=== PATIENT | male | born 1960 | race Caucasian/White ===

== ENCOUNTER → 2017-03-31 | Outpatient (CLI) | payer OTHER ==
[~2017-03-31] MED LIST: CLEOCIN HCL300 MG PO; NORCO 325 MG-51 TAB PO
== END ==
LOC: COL.RAD 12:10
DX: M23.321 Other meniscus derangements, posterior horn of medial meniscus, right knee (principal); M16.11 Unilateral primary osteoarthritis, right hip; M25.461 Effusion, right knee; M71.21 Synovial cyst of popliteal space [Baker], right knee; G89.29 Other chronic pain

== ENCOUNTER 2017-04-22 15:40 | Emergency (ER) | payer OTHER ==
[~2017-04-22] VITALS: Ht 175.3 cm; Wt 79.1 kg
[2017-04-22 15:43] VITALS: TEMP 97.4
[2017-04-22] MEDS ORDERED: NITROSTAT0.4 MG/TAB SL (15:54)
[2017-04-22] MEDS ORDERED: ASPIRIN 81M81 MG/TA2 PO (15:56)
[2017-04-22] MEDS ORDERED: NORVASC 10MG10 MG PO (16:07)
[2017-04-22] MEDS ORDERED: IPRATROPIUM BROM3 M1 (16:07)
[2017-04-22] MEDS ORDERED: LIPITOR 40MG TA40 MG PO (16:08)
[2017-04-22] MEDS ORDERED: 00186-0370-20 IH (16:08)
[2017-04-22] MEDS ORDERED: LOPRESSOR100 MG PO (16:09)
[2017-04-22] MEDS ORDERED: PRILOSEC 20MG20 MG PO (16:10)
[2017-04-22 16:13] LABS: BASO # 0.1 (0.0-0.2); BASO % 1.2 % (0.0-2.0); EOS # 0.3 (0.0-0.7); EOS % 3.5 % (0-4.0); GRAN # 5.1 (1.4-6.5); GRAN % 59.5 % (42.2-75.2); HEMATOCRIT 40.9 % (42.0-52.0); HEMOGLOBIN 14.4 g/dl (13.5-18.0); LYMPH # 2.4 (1.2-3.4); MEAN CELL VOLUME 95 fl (80.0-100.0); MEAN CORPUSCULAR HEMOGLOBIN 33 pg (27.0-31.0); MEAN CORPUSCULAR HGB CONC 35 g/dl (33.0-37.0); MEAN PLATELET VOLUME 9.4 fl (7.4-10.4); MONO # 0.6 (0.1-0.6); MONO % 7.3 % (1.7-9.3); PLATELET COUNT 159 K/mm3 (130-400); RED BLOOD COUNT 4.33 M/mm3 (4.20-5.60); REDCELL DISTRIBUTION WIDTH-CV 12.9 % (11.5-14.5)
[2017-04-22 16:24] LABS: ALANINE AMINOTRANSFERASE 28 U/L (21-72); ALBUMIN 4.1 gm/dL (3.5-5.0); ALKALINE PHOSPHATASE 81 U/L (50-136); ANION GAP 9 mmol/L (7-16); AST,SGOT 22 U/L (15-37); BILIRUBIN,TOTAL 0.5 mg/dL (0.0-1.0); BLOOD UREA NITROGEN 19 mg/dL (9-20); CALCIUM 8.5 mg/dL (8.4-10.2); CARBON DIOXIDE 28 mmol/L (22-30); CHLORIDE 105 mmol/L (98-107); CREATININE, serum 1.16 mg/dL (0.66-1.25); GLUCOSE 102 mg/dL (74-106); LIPASE 72 U/L (23-300); SODIUM 141 mmol/L (137-145)
[2017-04-22 16:36] LABS: TROPONIN-I < 0.012 ng/mL (0.000-0.034)
[2017-04-22 16:40] LABS: POTASSIUM 3.7 mmol/L (3.4-5.0)
[2017-04-22 19:10] VITALS: BP 139/76; PULSE 67
== END 2017-04-22 19:12 | disposition short-term general hospital (02) ==
LOC: COL.ER 15:40
PROVIDERS: Emergency Medicine
DX: I24.9 Acute ischemic heart disease, unspecified (principal); J44.9 Chronic obstructive pulmonary disease, unspecified; F17.210 Nicotine dependence, cigarettes, uncomplicated; Z95.5 Presence of coronary angioplasty implant and graft; Z90.89 Acquired absence of other organs; Z79.82 Long term (current) use of aspirin
CPT/HCPCS: J7030

== ENCOUNTER 2017-05-26 14:15 | Outpatient (RCR) | payer OTHER ==
[~2017-05-26 14:15] MED LIST changes: +00186-0370-20 IH; +ASPIRIN 81M81 MG/TA2 PO; +IPRATROPIUM BROM3 M1; +LIPITOR 40MG TA40 MG PO; +LOPRESSOR100 MG PO; +NITROSTAT0.4 MG/TAB SL; +NORVASC 10MG10 MG PO; +PRILOSEC 20MG20 MG PO
== END 2017-06-04 13:39 | disposition home or self-care (01) ==
LOC: COL.CR 14:15
DX: Z48.812 Encounter for surgical aftercare following surgery on the circulatory system (principal); Z95.5 Presence of coronary angioplasty implant and graft; I25.110 Atherosclerotic heart disease of native coronary artery with unstable angina pectoris

== ENCOUNTER 2018-01-09 09:02 | Day surgery (SDC) | payer OTHER ==
[~2018-01-09] VITALS: Ht 172.7 cm; Wt 80.2 kg
[~2018-01-09 09:02] MED LIST changes: -IPRATROPIUM BROM3 M1; +IPRATROPIUM BROM3 M1 IH
[2018-01-09] MEDS ORDERED: TOPROL XL200 MG PO (09:36)
[2018-01-09 09:37] VITALS: BP 143/85; PULSE 109; TEMP 98.2
[2018-01-09] MEDS ORDERED: PLAVIX 75MG TAB75 MG PO (09:37)
[2018-01-09 10:50] VITALS: BP 129/79; PULSE 62; TEMP 97.6
[2018-01-09 11:05] VITALS: BP 137/79; PULSE 58
[2018-01-09 11:20] VITALS: BP 140/77; PULSE 54
== END 2018-01-09 11:45 | disposition home or self-care (01) ==
LOC: SDCO 09:02
DX: Z12.11 Encounter for screening for malignant neoplasm of colon (principal); D12.5 Benign neoplasm of sigmoid colon; K63.5 Polyp of colon; J44.9 Chronic obstructive pulmonary disease, unspecified; I25.10 Atherosclerotic heart disease of native coronary artery without angina pectoris; I25.2 Old myocardial infarction; I10 Essential (primary) hypertension; G47.33 Obstructive sleep apnea (adult) (pediatric); K21.9 Gastro-esophageal reflux disease without esophagitis; Z86.010 Personal history of colon polyps; Z88.0 Allergy status to penicillin
CPT/HCPCS: J2704; J7120

== ENCOUNTER 2018-06-25 12:16 | Inpatient (IN) | payer OTHER ==
[~2018-06-25] VITALS: Ht 175.3 cm; Wt 82.7 kg
[~2018-06-25 12:16] MED LIST changes: +LIPITOR 10MG10 MG PO; -LIPITOR 40MG TA40 MG PO; -NORVASC 10MG10 MG PO; +NORVASC2.5 MG PO; +PLAVIX 75MG TAB75 MG PO; +TOPROL XL200 MG PO
[2018-09-09] VITALS (12 sets, daily range): BP systolic 112–129; BP diastolic 59–76; PULSE 42–71; TEMP 97.5–98.5
[2018-09-09] MEDS ORDERED: TESSALON P100 MG/CAP PO (02:58)
[2018-09-09] MEDS ORDERED: ALBUTEROL0.83 MG/ML IH (02:58)
[2018-09-09] MEDS ORDERED: ENTOCORT EC3 MG PO (02:59)
[2018-09-09] MEDS ORDERED: ZYRTEC 10MG10 MG PO (03:00)
[2018-09-09] MEDS ORDERED: FLONASEALLERGY NS (03:01)
[2018-09-09] MEDS ORDERED: LOPRESSOR 225 MG/TAB PO (03:03)
[2018-09-09] MEDS ORDERED: NITRO-DUR0.4 MG/PAT TD (03:03)
[2018-09-09] MEDS ORDERED: KOVANAZE 6-0.11 EACH NS (03:04)
[2018-09-09] MEDS ORDERED: FLOMAX 0.40.4 MG/CAP PO (03:05)
[2018-09-09] MEDS ORDERED: TYLENOL W/COD1 UDTAB PO (03:06)
[2018-09-09] MEDS ORDERED: AZO URINARY PAI95 MG PO (03:07)
[2018-09-09] MEDS ORDERED: 00186-0370-20 IH (06:37)
[2018-09-09] MEDS ORDERED: NITROSTAT0.4 MG/TAB SL (06:39)
[2018-09-09] MEDS ORDERED: COMBIRESP (06:43)
--- NOTE | 2018-09-09 10:20 | NUR ---
PATIENT BACK IN ROOM 329 POST OP. A&O. VSS. DENIES PAIN IN RLE. PATIENT IS UNABLE TO MOVE BLE AT THIS TIME. RTK DRESSING IS CD&I WITH BULKY POST OP ACEWRAP. TEDS TO LLE. SCD'S TO BLE. POSITIVE PEDAL PULSES TO BLE. VENTURA TO DEPENDENT DRAINAGE WITH SCANT AMOUNTS OF YELLOW URINE NOTED. IV FLUIDS INFUSING VIA PUMP. HEAD TO TOE ASSESSMENT WNL. ORIENTED TO ROOM. FAMILY NOW AT BEDSIDE. CALL LIGHT IN REACH.
--- NOTE | 2018-09-09 14:30 | NUR ---
RT AT BEDSIDE TO DO TX
--- NOTE | 2018-09-09 15:00 | NUR ---
SW met with patient to discuss discharge planning. Patient lives independently at home. Patient receives primary care and medications via mail from the [facility] in [place]. Patient does not normally use DME but will use a walker after he is discharged. Patient has already obtained a walker. Patient is independent with ADLs and does not use any home health services. Patient reports he plans to get outpatient PT at [facility]. Patient does not have a DPOA-HC and is not interested in completing one at this time. SUKUMAR does not anticipate any discharge needs.
--- NOTE | 2018-09-09 20:00 | NUR ---
Report received. Assumed care for overnight caregiver. Assessment complete. VS have been stable. Plan of care discussed for this shift to include pain medications, antibiotics, IV fluids and diet. Verbalizes understanding. R FA with 20g IV-D 5 1/2NS@125. Tolerating PO. Dressing to right lower extremity C/D/I-bulky white gauze covered with miranda. Cryocuff in place-fresh ice water supplied. Spouse at bedside. Denies questions or concerns. Will monitor.
--- NOTE | 2018-09-09 23:30 | NUR ---
C/O pain to right lower extremity described as throbbing constant pain. Roxicodone given per dr order. WIll monitor.
[2018-09-10 03:47] VITALS: BP 103/50; PULSE 66; TEMP 97.9
--- NOTE | 2018-09-10 06:00 | NUR ---
Has rested off an on this shift with pain controlled with PO medications and Toradol. Dykes cath draining orange urine. Dressing remains C/D/I with extremity elevated on pillow. Cryocuff with fresh ice. Will monitor.
--- NOTE | 2018-09-10 06:42 | NUR ---
Discussed home medications with Dr. Blackmon due to Tramadol allergy. WIll order something different for DC meds.
--- NOTE | 2018-09-10 07:03 | NUR ---
REPORT FROM ALBERTINA CHACON.
[2018-09-10 08:24] LABS: HEMOGLOBIN 11.5 g/dl (13.5-18.0)
[2018-09-10 08:32] LABS: HEMATOCRIT 35.1 % (42.0-52.0)
[2018-09-10 08:42] VITALS: BP 132/61; PULSE 66; TEMP 97.6
--- NOTE | 2018-09-10 09:47 | NUR ---
PT UP TO RECLINER WITH THERAPY. UP TO BR EARLIER IN SHIFT AND THEN RETURNED TO BED. DRESSING TO RIGHT LEG CDI WITH BULKY OCCLUSIVE DRESSING OVER INCISION. DR PALOMARES ROUNDED THIS AM. CODY MARION LIVESTOCK YARD SUPERVISOR IN SO SEE PTS THIS AM ALSO. SEE COMPUTER FOR NEW ORDERS.
--- NOTE | 2018-09-10 10:51 | NUR ---
VENTURA CATHETER REMOVED PT TOLERATED WELL.
[2018-09-10 11:12] VITALS: BP 116/64; PULSE 62; TEMP 97.9
[2018-09-10 16:23] VITALS: BP 125/69; PULSE 76; TEMP 97.9
--- NOTE | 2018-09-10 18:44 | NUR ---
report to Santy CHACON.
[2018-09-10 19:37] VITALS: BP 127/61; PULSE 76; TEMP 98.1
--- NOTE | 2018-09-10 21:00 | NUR ---
Pt. laying in bed at this time. Pt. is A&OX3, assessment complete. Pt. reported he ambulated from the chair to the bathroom and then to bed. Pt. refused walking farther. Dressing to rt. knee CDI. Pt. reports pain at a 7 on pain scale, will give pain meds with evening meds. Pt. denies further needs, call light within reach.
[2018-09-11 00:04] VITALS: BP 136/71; PULSE 82; TEMP 99.3
[2018-09-11 04:49] VITALS: BP 124/68; PULSE 75; TEMP 99.1
[2018-09-11] MEDS ORDERED: ASPI325T6 PO (06:39)
[2018-09-11] MEDS ORDERED: NORCO 325 MG-7.1 TAB PO (06:40)
[2018-09-11] MEDS ORDERED: ROXICODONE 55 MG/TAB PO (06:40)
--- NOTE | 2018-09-11 06:40 | NUR ---
awake resting in bed, bedside shift report received from [facility]
--- NOTE | 2018-09-11 07:50 | NUR ---
up to bathroom independently and moves with steady gait, then back to bed, full assessment completed, see interventions for further info, xeroform gauze removed from right knee incision, cleaned with betadine swabs and then covered with aquacel dressing, denies needs at this time, will order breakfast soon
[2018-09-11 08:04] VITALS: BP 131/69; PULSE 71; TEMP 97.6
--- NOTE | 2018-09-11 09:00 | NUR ---
occupational therapy in to work with patietn and assisted him with taking a shower
--- NOTE | 2018-09-11 10:05 | NUR ---
ambulating in [place] with physical therapy and then to room for exercises
--- NOTE | 2018-09-11 11:00 | NUR ---
resting in bed, denies needs
[2018-09-11 11:56] VITALS: BP 129/58; PULSE 71; TEMP 97.5
--- NOTE | 2018-09-11 12:08 | NUR ---
appears to be sleeping, in bed with eyes closed, resp quiet and easy
--- NOTE | 2018-09-11 12:54 | NUR ---
physical therapy was in and worked with patient, now he is up and getting dressed for discharge
--- NOTE | 2018-09-11 14:00 | NUR ---
discharge instructions given to patient and his sister, verbalizes understanding
--- NOTE | 2018-09-11 14:10 | NUR ---
discharged per WC
== END 2018-09-11 14:10 | disposition home or self-care (01) | DRG 470 ==
LOC: JCC 09-09 05:21
PROVIDERS: ADMIT Orthopaedic Surgery
PROC: 0SRC0J9 Replacement of Right Knee Joint with Synthetic Substitute, Cemented, Open Approach (ICD-10-PCS; principal; 2018-09-09 07:30)
DX: M17.11 Unilateral primary osteoarthritis, right knee (principal); J44.9 Chronic obstructive pulmonary disease, unspecified
CPT/HCPCS: A4314; A9284; C1776; J0690; J1885; J2250; J2704; J2795; J3010; J7120

== ENCOUNTER 2019-01-04 12:56 | Emergency (ER) | payer OTHER ==
[~2019-01-04] VITALS: Ht 172.7 cm; Wt 75.9 kg
[~2019-01-04 12:56] MED LIST changes: +ALBUTEROL0.83 MG/ML IH; +ASPI325T6 PO; +AZO URINARY PAI95 MG PO; +COMBIRESP; +ENTOCORT EC3 MG PO; +FLOMAX 0.40.4 MG/CAP PO; +FLONASEALLERGY NS; +KOVANAZE 6-0.11 EACH NS; +LOPRESSOR 225 MG/TAB PO; +NITRO-DUR0.4 MG/PAT TD; +NORCO 325 MG-7.1 TAB PO; +ROXICODONE 55 MG/TAB PO; +TESSALON P100 MG/CAP PO; +TYLENOL W/COD1 UDTAB PO; +ZYRTEC 10MG10 MG PO
[2019-01-04 12:59] VITALS: TEMP 98.7
[2019-01-04] MEDS ORDERED: LODINE500 MG (13:14)
[2019-01-04] MEDS ORDERED: VITAMIN D 400400 IU PO (13:15)
[2019-01-04] MEDS ORDERED: VIAGRA50 M1 (13:15)
[2019-01-04] MEDS ORDERED: ZITHROMAX 250M250 MG PO (14:38)
[2019-01-04] MEDS ORDERED: PREDNISONE20 MG PO (15:06)
[2019-01-04 15:17] VITALS: BP 140/82; PULSE 96
== END 2019-01-04 15:20 | disposition home or self-care (01) ==
LOC: COL.ER 12:56
DX: J44.1 Chronic obstructive pulmonary disease with (acute) exacerbation (principal); J20.9 Acute bronchitis, unspecified; Z79.82 Long term (current) use of aspirin; Z79.51 Long term (current) use of inhaled steroids
CPT/HCPCS: J7512

== ENCOUNTER 2019-03-16 01:38 | Emergency (ER) | payer OTHER ==
[~2019-03-16] VITALS: Ht 172.7 cm; Wt 80.5 kg
[~2019-03-16 01:38] MED LIST changes: -COMPRESSION HOSE; -K-DUR20 MEQ PO; -LASIX 20MG TABL20 MG PO
[2019-03-16 02:12] VITALS: TEMP 98.7
[2019-03-16 02:51] LABS: BASO # 0.1 (0.0-0.2); BASO % 0.8 % (0.0-2.0); EOS # 0.3 (0.0-0.7); EOS % 3.5 % (0-4.0); GRAN # 5.1 (1.4-6.5); GRAN % 66.5 % (42.2-75.2); HEMATOCRIT 39.9 % (42.0-52.0); HEMOGLOBIN 13.9 g/dl (13.5-18.0); LYMPH # 1.7 (1.2-3.4); LYMPH % 22.2 % (20.0-51.0); MEAN CELL VOLUME 98 fl (80.0-100.0); MEAN CORPUSCULAR HEMOGLOBIN 34 pg (27.0-31.0); MEAN CORPUSCULAR HGB CONC 35 g/dl (33.0-37.0); MONO # 0.5 (0.1-0.6); MONO % 6.7 % (1.7-9.3); PLATELET COUNT 151 K/mm3 (130-400); RED BLOOD COUNT 4.08 M/mm3 (4.20-5.60)
[2019-03-16 02:59] LABS: BILIRUBIN,TOTAL 0.4 mg/dL (0.0-1.0); CALCIUM 8.6 mg/dL (8.4-10.2); CREATININE, serum 0.86 (0.66-1.25); MAGNESIUM 1.4 mg/dL (1.6-2.3); POTASSIUM 3.7 mmol/L (3.4-5.0); TOTAL PROTEIN 7.1 gm/dL (6.4-8.2)
[2019-03-16 03:08] LABS: INR 0.9 (0.8-3.0); PROTHROMBIN TIME 10.8 SECONDS (9.7-12.8)
[2019-03-16 03:11] LABS: PARTIAL THROMBOPLASTIN TIME 30.3 SECONDS (26.0-37.0)
[2019-03-16 03:29] LABS: TSH w REFLEX 2.82 uIU/mL (0.465-4.680)
[2019-03-16 03:36] LABS: COLLECTION METHOD CLEAN CATCH
[2019-03-16 03:41] LABS: MUCOUS Present /lpf; PH 7 (5-8); SQUAMOUS EPITHELIAL 0-2 /hpf; URINE APPEARANCE Clear; URINE BACTERIA None Seen /hpf; URINE BILIRUBIN Negative (NEGATIVE); URINE BLOOD 1+ (NEGATIVE); URINE COLOR Straw; URINE GLUCOSE Negative (NEGATIVE); URINE KETONE Negative (NEGATIVE); URINE LEUKOCYTE ESTERASE Negative (NEGATIVE); URINE NITRATE Negative (NEGATIVE); URINE PROTEIN(semi-quant) Negative (NEGATIVE); URINE RBC 0-2 /hpf; URINE UROBILINOGEN Negative (NEGATIVE)
[2019-03-16] MEDS ORDERED: K-DUR20 MEQ PO (04:15)
[2019-03-16] MEDS ORDERED: LASIX 20MG TABL20 MG PO (04:15)
[2019-03-16] MEDS ORDERED: COMPRESSION HOSE (04:17)
[2019-03-16 04:38] VITALS: BP 152/89; PULSE 76
== END 2019-03-16 04:40 | disposition home or self-care (01) ==
LOC: COL.ER 01:38
PROVIDERS: Emergency Medicine
DX: R60.0 Localized edema (principal); I25.10 Atherosclerotic heart disease of native coronary artery without angina pectoris; J44.9 Chronic obstructive pulmonary disease, unspecified; F17.210 Nicotine dependence, cigarettes, uncomplicated; Z79.82 Long term (current) use of aspirin; Z79.51 Long term (current) use of inhaled steroids

== ENCOUNTER → 2019-03-16 | Outpatient (CLI) | payer OTHER ==
[~2019-03-16] MED LIST changes: +COMPRESSION HOSE; +K-DUR20 MEQ PO; +LASIX 20MG TABL20 MG PO; +LODINE500 MG; +PREDNISONE20 MG PO; +VIAGRA50 M1; +VITAMIN D 400400 IU PO; +ZITHROMAX 250M250 MG PO
== END ==
LOC: COL.VAS 12:20
DX: M79.89 Other specified soft tissue disorders (principal)

== ENCOUNTER → 2019-03-25 | Outpatient (CLI) | payer OTHER ==
[~2019-03-25] MED LIST changes: +COMPRESSION HOSE; +K-DUR20 MEQ PO; +LASIX 20MG TABL20 MG PO
[2019-03-25 10:27] LABS: HEMATOCRIT 42.1 % (42.0-52.0); HEMOGLOBIN 14.3 g/dl (13.5-18.0); MEAN CELL VOLUME 100 fl (80.0-100.0); MEAN CORPUSCULAR HEMOGLOBIN 34 pg (27.0-31.0); MEAN CORPUSCULAR HGB CONC 34 g/dl (33.0-37.0); MEAN PLATELET VOLUME 9.2 fl (7.4-10.4); PLATELET COUNT 174 K/mm3 (130-400); RED BLOOD COUNT 4.21 M/mm3 (4.20-5.60); REDCELL DISTRIBUTION WIDTH-CV 14.9 % (11.5-14.5)
[2019-03-25 10:52] LABS: ERYTHROCYTE SEDIMENTATION RATE 4 mm/hr (0-30)
== END ==
LOC: COL.LAB 10:04
PROVIDERS: Nurse Practitioner Family
DX: Z96.651 Presence of right artificial knee joint (principal)

== ENCOUNTER 2020-09-19 06:03 | Emergency (ER) | payer OTHER ==
[~2020-09-19] VITALS: Ht 172.7 cm; Wt 72.7 kg
[~2020-09-19 06:03] MED LIST changes: -VIAGRA50 M1; +VIAGRA50 M1 PO
[2020-09-19 06:31] VITALS: TEMP 97.6
[2020-09-19] MEDS ORDERED: COMBIRESP IH (06:48)
[2020-09-19] MEDS ORDERED: NORVASC 10MG10 MG PO (06:49)
[2020-09-19] MEDS ORDERED: LIPITOR 80MG80 MG PO (06:50)
[2020-09-19] MEDS ORDERED: ASPIRIN 81M81 MG/TA2 PO (06:50)
[2020-09-19 06:59] LABS: BASO # 0.1 (0.0-0.2); BASO % 0.6 % (0.0-2.0); EOS # 0.1 (0.0-0.7); EOS % 0.8 % (0-4.0); GRAN # 7.4 (1.4-6.5); GRAN % 80.2 % (42.2-75.2); HEMATOCRIT 42.1 % (42.0-52.0); HEMOGLOBIN 14.4 g/dl (13.5-18.0); LYMPH % 10.4 % (20.0-51.0); MEAN CELL VOLUME 103 fl (80.0-100.0); MEAN CORPUSCULAR HEMOGLOBIN 35 pg (27.0-31.0); MEAN CORPUSCULAR HGB CONC 34 g/dl (33.0-37.0); MEAN PLATELET VOLUME 9.9 fl (7.4-10.4); MONO # 0.7 (0.1-0.6); MONO % 7.5 % (1.7-9.3); PLATELET COUNT 121 K/mm3 (130-400)
[2020-09-19 07:11] LABS: ALANINE AMINOTRANSFERASE 20 U/L (4-49); ALBUMIN 4.3 gm/dL (3.5-5.0); ALKALINE PHOSPHATASE 94 U/L (50-136); ANION GAP 11 mmol/L (7-16); AST,SGOT 30 U/L (15-37); BILIRUBIN,TOTAL 1.1 mg/dL (0.0-1.0); BLOOD UREA NITROGEN 15 mg/dL (9-20); CALCIUM 8.8 mg/dL (8.4-10.2); CARBON DIOXIDE 25 mmol/L (22-30); CHLORIDE 101 mmol/L (98-107); CREATININE, serum 0.75 (0.66-1.25); GLUCOSE 146 mg/dL (74-106); POTASSIUM 3.7 mmol/L (3.4-5.0); SODIUM 137 mmol/L (137-145)
[2020-09-19 07:29] LABS: TROPONIN-I < 0.012 ng/mL (0.000-0.035)
[2020-09-19] MEDS ORDERED: NORCO 325 MG-51 TAB PO (08:19)
[2020-09-19 09:00] VITALS: PULSE 68
[2020-09-19 09:30] VITALS: BP 160/101
== END 2020-09-19 10:26 | disposition home or self-care (01) ==
LOC: COL.ER 06:03
PROVIDERS: Personal Emergency Response Attendant
DX: S22.31XA Fracture of one rib, right side, initial encounter for closed fracture (principal); I25.10 Atherosclerotic heart disease of native coronary artery without angina pectoris; I25.2 Old myocardial infarction; Z79.82 Long term (current) use of aspirin; W01.0XXA Fall on same level from slipping, tripping and stumbling without subsequent striking against object, initial encounter
CPT/HCPCS: A9284

== ENCOUNTER 2021-01-22 08:24 | Observation (INO) | payer OTHER ==
[2021-01-22] VITALS (10 sets, daily range): BP systolic 123–137; BP diastolic 61–80; PULSE 65–74; TEMP 97.6–98
[~2021-01-22] VITALS: Ht 175.3 cm; Wt 73.6 kg
[~2021-01-22 08:24] MED LIST changes: +COMBIRESP IH; +LIPITOR 80MG80 MG PO; +NORVASC 10MG10 MG PO
[2021-01-22 08:44] LABS: BASO # 0.1 K/mm3 (0.0-0.2); BASO % 1.2 % (0.0-2.0); EOS # 0.2 K/mm3 (0.0-0.7); EOS % 3.7 % (0-4.0); GRAN # 4.2 K/mm3 (1.4-6.5); GRAN % 65.1 % (42.2-75.2); HEMATOCRIT 38.4 % (42.0-52.0); HEMOGLOBIN 13.3 g/dl (13.5-18.0); LYMPH # 1.2 K/mm3 (1.2-3.4); LYMPH % 19.3 % (20.0-51.0); MEAN CELL VOLUME 99 fl (80.0-100.0); MEAN CORPUSCULAR HEMOGLOBIN 34 pg (27.0-31.0); MEAN CORPUSCULAR HGB CONC 35 g/dl (33.0-37.0); MEAN PLATELET VOLUME 9.8 fl (7.4-10.4); MONO # 0.7 K/mm3 (0.1-0.6); MONO % 10.5 % (1.7-9.3); PLATELET COUNT 161 K/mm3 (130-400); RED BLOOD COUNT 3.89 M/mm3 (4.20-5.60); REDCELL DISTRIBUTION WIDTH-CV 12.9 % (11.5-14.5)
[2021-01-22 08:56] LABS: ALBUMIN 3.7 gm/dL (3.5-5.0); BILIRUBIN,TOTAL 0.7 mg/dL (0.2-1.2); CALCIUM 8.3 mg/dL (8.4-10.2); CREATININE, serum 0.77 mg/dL (0.72-1.25); POTASSIUM 3.3 mmol/L (3.5-4.5); TOTAL PROTEIN 6.8 gm/dL (6.2-8.1)
[2021-01-22 09:02] LABS: TROPONIN-I 0.014 ng/mL (0.00-0.033)
--- NOTE | 2021-01-22 10:37 | NUR ---
SEE VALARIE FOR ALL MEDICATION ADMINISTRATION TIMES, INTRA AND POST SEDATION ASSESSMENTA
--- NOTE | 2021-01-22 12:38 | NUR ---
Pt arrived to floor at this time via bed with director of cardiac cath lab staff. Wants to use urinal at thsi time, able to void via urinal without any problems. R radial dressing has scant bleeding on it, denies pain at this time. LFA has large skin tear from director of cardiac cath lab, will redress with xeroform, gauze, kerlex and coban wrap. INT to LFA and LA/C. Will continue to monitor.
[2021-01-22 14:41] LABS: PROTHROMBIN TIME 11.6 SECONDS (9.7-12.8)
[2021-01-22 15:10] LABS: TSH w REFLEX 0.552 uIU/mL (0.350-4.940)
[2021-01-22 16:42] LABS: COLLECTION METHOD CLEAN CATCH
[2021-01-22 16:52] LABS: PH 7 (5-8); SQUAMOUS EPITHELIAL None Seen /hpf (0-10); URINE APPEARANCE Clear (CLEAR/HAZY); URINE BACTERIA None Seen (NONE SEEN); URINE BILIRUBIN Negative (NEGATIVE); URINE BLOOD Negative (NEGATIVE); URINE COLOR Yellow (YELLOW); URINE GLUCOSE Negative (NEGATIVE); URINE KETONE Negative (NEGATIVE); URINE LEUKOCYTE ESTERASE Negative (NEGATIVE); URINE NITRATE Negative (NEGATIVE); URINE PROTEIN(semi-quant) Negative (NEGATIVE); URINE RBC 0-2 /hpf (0-2); URINE UROBILINOGEN >=4.0 mg/dL (NEGATIVE)
--- NOTE | 2021-01-22 17:50 | NUR ---
Pt has done well this afternoon. Ableto deflate baloon to R wrist radial site and place bandaid over it. INT to LW dc'd as sencondary and not working.. Resting well, denies needs, will give report to nightshift nurse who will reusme care.
--- NOTE | 2021-01-22 20:00 | NUR ---
Report received, assumed care for car shifter. Assessment complete. A&Ox4. Denies pain/nausea/shortness of breath. VS stable. Right radial heart cath site with [id number]-epyxry still on. Left AC 20g flushes without difficulty. Plan of care discussed for this shift to include meds/calling for questions/cocnerns/monitoring vitals. Verbalizes understanding. Call light in reach. Will monitor.
--- NOTE | 2021-01-23 00:10 | NUR ---
Resting eyes closed. No s/s of pain or discomfort noted. Call light in reach. Will monitor.
[2021-01-23 00:30] VITALS: BP 149/78; PULSE 78; TEMP 97.4
[2021-01-23 00:37] VITALS: BP 149/78; PULSE 78; TEMP 97.4
--- NOTE | 2021-01-23 03:16 | NUR ---
Called with c/o pain in right hand/arm/shoulder. States "that pain is back"
[2021-01-23 03:18] VITALS: BP 137/78; PULSE 73; TEMP 97.8
[2021-01-23 03:49] VITALS: BP 137/78; PULSE 73; TEMP 97.8
--- NOTE | 2021-01-23 05:38 | NUR ---
No more complaints of arm pain this shift. VS remained stable. Dressing to right radial heart cath site remained CDI. Dressing to left forearm skin tear changed. Denies questions/concerns. Call light in reach. Will monitor.
--- NOTE | 2021-01-23 06:50 | NUR ---
Pt doing well during bedside shift reports, no needs verbalized. Pt hoping to get to go home today.
[2021-01-23 07:09] LABS: BASO # 0.1 K/mm3 (0.0-0.2); BASO % 0.8 % (0.0-2.0); EOS # 0.2 K/mm3 (0.0-0.7); EOS % 3.6 % (0-4.0); GRAN # 4.7 K/mm3 (1.4-6.5); HEMATOCRIT 40.2 % (42.0-52.0); HEMOGLOBIN 13.9 g/dl (13.5-18.0); LYMPH % 15.3 % (20.0-51.0); MEAN CELL VOLUME 100 fl (80.0-100.0); MEAN CORPUSCULAR HEMOGLOBIN 34 pg (27.0-31.0); MEAN CORPUSCULAR HGB CONC 35 g/dl (33.0-37.0); MEAN PLATELET VOLUME 9.8 fl (7.4-10.4); MONO # 0.6 K/mm3 (0.1-0.6); MONO % 9.1 % (1.7-9.3); PLATELET COUNT 139 K/mm3 (130-400); RED BLOOD COUNT 4.04 M/mm3 (4.20-5.60); REDCELL DISTRIBUTION WIDTH-CV 12.7 % (11.5-14.5)
[2021-01-23 07:19] LABS: CALCIUM 8.5 mg/dL (8.4-10.2); CREATININE, serum 0.73 mg/dL (0.72-1.25); POTASSIUM 3.7 mmol/L (3.5-4.5)
[2021-01-23 07:57] VITALS: BP 118/67; PULSE 85; TEMP 97.4
--- NOTE | 2021-01-23 08:11 | NUR ---
Pt continues to do well. He has had breakfast with no complaints. Still has some pain in his right arm, pt reports the same as what he has had. No needs verbalized, call light within reach
[2021-01-23] MEDS ORDERED: IMDUR 30MG30 MG/TAB PO (09:13)
[2021-01-23] MEDS ORDERED: FOLIC ACID 11 MG/TA1 PO (09:14)
[2021-01-23] MEDS ORDERED: THIAMINE 1100 MG/TAB PO (09:15)
[2021-01-23] MEDS ORDERED: DUO-KAPS1 CAP PO (09:15)
[2021-01-23] MEDS ORDERED: PROBIOTIC ACID1 EAC3 PO (09:18)
[2021-01-23] MEDS ORDERED: B-121000 MCG PO (09:20)
[2021-01-23] MEDS ORDERED: D3-5050000 IU PO (09:24)
[2021-01-23] MEDS ORDERED: MAG-OX 400400 MG/TAB PO (10:14)
--- NOTE | 2021-01-23 10:23 | NUR ---
Initial visit Patient thanked Packaging Tech for looking in on him and offering God's blessing though declined spiritual care.
--- NOTE | 2021-01-23 10:30 | NUR ---
Pt does have orders to go home. He is hoping to leave soon. Informed him that we needed to attempt to make him an appointment prior to him leaving. Took the dressing off his left forearm. One and a half by one inch area where top layer of skin was pulled off. Pt stated that he gets wounds like this often. Had some antibiotic ointment ordered and will send home with some non adherant pads.
--- NOTE | 2021-01-23 11:20 | NUR ---
Reviewed discharge instructions with pt, all questions answered. Reviewed all medications as well follow up appointments. [facility], message left. Informed pt of this. INT removed from left AC. Pt escorted out via wheelchair
== END 2021-01-23 11:35 | disposition home or self-care (01) ==
LOC: COL.ER 08:24 → MEDICAL 09:33
PROVIDERS: Emergency Medicine; Physician Assistant; ADMIT Student in an Organized Health Care Education/Training Program
DX: M79.601 Pain in right arm (principal); R07.9 Chest pain, unspecified; I25.10 Atherosclerotic heart disease of native coronary artery without angina pectoris; I10 Essential (primary) hypertension; I25.2 Old myocardial infarction; J44.9 Chronic obstructive pulmonary disease, unspecified; D52.9 Folate deficiency anemia, unspecified; K21.9 Gastro-esophageal reflux disease without esophagitis; E78.5 Hyperlipidemia, unspecified; R30.0 Dysuria; F17.210 Nicotine dependence, cigarettes, uncomplicated; E87.6 Hypokalemia; E83.42 Hypomagnesemia; Z95.5 Presence of coronary angioplasty implant and graft; Z79.899 Other long term (current) drug therapy; Z79.82 Long term (current) use of aspirin; Z79.51 Long term (current) use of inhaled steroids; Z72.89 Other problems related to lifestyle
CPT/HCPCS: C1760; C1769; G0378; J1644; J2250; J3010; J3475

== ENCOUNTER 2022-11-29 02:13 | Observation (INO) | payer OTHER ==
[2022-11-29] VITALS (23 sets, daily range): BP systolic 92–125; BP diastolic 59–82; PULSE 60–90; TEMP 97.5–98.1
[~2022-11-29] VITALS: Ht 175.3 cm; Wt 65.7 kg
[~2022-11-29 02:13] MED LIST changes: +B-121000 MCG PO; +D3-5050000 IU PO; +DUO-KAPS1 CAP PO; +FOLIC ACID 11 MG/TA1 PO; +IMDUR 30MG30 MG/TAB PO; +MAG-OX 400400 MG/TAB PO; +PROBIOTIC ACID1 EAC3 PO; +THIAMINE 1100 MG/TAB PO
[2022-11-29 02:44] LABS: BASO # 0.1 K/mm3 (0.0-0.2); BASO % 0.9 % (0.0-2.0); EOS # 0.2 K/mm3 (0.0-0.7); EOS % 2.4 % (0.0-4.0); GRAN # 5.6 K/mm3 (1.4-6.5); GRAN % 64.4 % (42.2-75.2); HEMATOCRIT 32.1 % (42.0-52.0); HEMOGLOBIN 10.9 g/dl (13.5-18.0); LYMPH # 2.2 K/mm3 (1.2-3.4); LYMPH % 25.4 % (20.0-51.0); MEAN CELL VOLUME 102 fl (80.0-100.0); MEAN CORPUSCULAR HEMOGLOBIN 35 pg (27-31); MEAN CORPUSCULAR HGB CONC 34 g/dl (33.0-37.0); MONO # 0.6 K/mm3 (0.1-0.6); MONO % 6.6 % (1.7-9.3); PLATELET COUNT 151 K/mm3 (130-400); RED BLOOD COUNT 3.16 M/mm3 (4.20-5.60); REDCELL DISTRIBUTION WIDTH-CV 13.3 % (11.5-14.5)
[2022-11-29 02:46] LABS: INR 0.9 (0.8-3.0); PROTHROMBIN TIME 10.2 SECONDS (9.7-12.8)
[2022-11-29 02:49] LABS: PARTIAL THROMBOPLASTIN TIME 28.8 SECONDS (26.0-37.0)
[2022-11-29 03:06] LABS: ALBUMIN 2.7 gm/dL (3.4-4.8); BILIRUBIN,TOTAL 0.4 mg/dL (0.2-1.2); CALCIUM 8.8 mg/dL (8.4-10.2); CREATININE, serum 2.12 mg/dL (0.72-1.25); POTASSIUM 3.3 mmol/L (3.5-4.5); TOTAL PROTEIN 5.9 gm/dL (6.2-8.1)
[2022-11-29 03:12] LABS: TROPONIN-I 0.01 ng/mL (0.00-0.033)
[2022-11-29] MEDS ORDERED: MASON NATURAL2000 IU PO (08:05)
--- NOTE | 2022-11-29 08:42 | NUR ---
Patient up to medical unit from ED. C/O chest pain 10/20, hospitalist notified. Also C/O diarrhea, consistent for the last few weeks as well as difficulty urinating, with straining and burning. Patient alert and oriented. Denies shortness of breath or nausea. Skin intact, dry, coarse skin on feet with thick nails. Fragile skin on arms, skin tear on right arm due to adhesive from tele pads. Hospitalist in room discussing plan of care with patient. PRN given for pain. Denies further needs at this time. Bed in lowest position with call light within reach.
[2022-11-29 09:34] LABS: HEMOGLOBIN 11.1 g/dl (13.5-18.0); MEAN CELL VOLUME 101 fl (80.0-100.0); MEAN CORPUSCULAR HEMOGLOBIN 34 pg (27-31); MEAN CORPUSCULAR HGB CONC 34 g/dl (33.0-37.0); PLATELET COUNT 139 K/mm3 (130-400); RED BLOOD COUNT 3.23 M/mm3 (4.20-5.60); REDCELL DISTRIBUTION WIDTH-CV 13.3 % (11.5-14.5)
[2022-11-29 09:37] LABS: HEMATOCRIT 32.5 % (42.0-52.0)
[2022-11-29 09:48] LABS: CALCIUM 8.7 mg/dL (8.4-10.2); POTASSIUM 3.6 mmol/L (3.5-4.5)
--- NOTE | 2022-11-29 11:44 | NUR ---
Please see merge documentation for record of interventions, vitals and medications administered during left heart cath.
--- NOTE | 2022-11-29 13:27 | NUR ---
Hospitalist notified of critical lab value.
--- NOTE | 2022-11-29 16:06 | NUR ---
cemetery worker met with patient to discuss discharge planning. Patient lives alone in [place], [place]. Patient's best point of contact is Rosa, sister, P# [phone]. Patient's primary Care Physician is [facility] in [place]. Patient's preferred pharmacy is [facility] in [facility]. Patient has no issues with paying for medications. Patient does not have a DPOA-HC and had no interest with completing one prior to discharge. Patient has a CPAP machine at home. Patient is independent with ADLS. Patient would like to return home at time of discharge. Discharge Plan: Home
--- NOTE | 2022-11-29 16:44 | NUR ---
TR band removed, no bleeding/signs of hematoma at site. Gauze and coban in place. Patient instructed to not put pressure on right wrist or use excessive force pushing or pulling.
--- NOTE | 2022-11-29 20:45 | NUR ---
Patient resting in bed. Denies any pain at this time. IV in left AC and left forearm infusing with with no complications. Assessment complete. Denies any other needs at this time. Call light and personal items in reach. Bed in low position and bed alarm on.
[2022-11-30 02:53] VITALS: BP 109/57; PULSE 89; TEMP 97.4
[2022-11-30 05:00] VITALS: BP_SYST 114
[2022-11-30 05:40] VITALS: BP 114/68; PULSE 92
--- NOTE | 2022-11-30 06:00 | NUR ---
Patient resting in bed. Denies any pain at this time. Patients tele jumped up to the 140s and was showing v-fib, patient was up to the bathroom at this time. Denies any chest pain or SOB. Denies any other needs at this time. Call light and personal items in reach. Bed in low position.
[2022-11-30 06:06] LABS: HEMOGLOBIN 10.7 g/dl (13.5-18.0); MEAN CELL VOLUME 100 fl (80.0-100.0); MEAN CORPUSCULAR HEMOGLOBIN 34 pg (27-31); MEAN CORPUSCULAR HGB CONC 34 g/dl (33.0-37.0); PLATELET COUNT 127 K/mm3 (130-400); RED BLOOD COUNT 3.14 M/mm3 (4.20-5.60); REDCELL DISTRIBUTION WIDTH-CV 13.3 % (11.5-14.5)
[2022-11-30 06:13] LABS: HEMATOCRIT 31.3 % (42.0-52.0)
[2022-11-30 06:26] LABS: ALBUMIN 2.4 gm/dL (3.4-4.8); BILIRUBIN,TOTAL 0.5 mg/dL (0.2-1.2); CALCIUM 8.6 mg/dL (8.4-10.2); CHOLESTEROL RISK RATIO 2.1; CREATININE, serum 1.77 mg/dL (0.72-1.25); MAGNESIUM 1.2 mg/dL (1.6-2.6); POTASSIUM 3.8 mmol/L (3.5-4.5); TOTAL PROTEIN 5.2 gm/dL (6.2-8.1)
[2022-11-30 06:51] LABS: THYROID STIMULATING HORMONE 1.645 uIU/mL (0.350-4.940)
[2022-11-30 07:02] VITALS: BP 118/66; PULSE 84; TEMP 97.5
[2022-11-30 09:10] VITALS: BP_SYST 118
--- NOTE | 2022-11-30 09:10 | NUR ---
PT AWAKE IN ROOM UPON ENTERING. ASSESSMENT DONE, PT DENIES PAIN AT THIS TIME. FLUDIS RUNNING PER ORDER. PT HAS A SKIN TEAR TO RIGHT FOREARM COVERED WITH GAUZE AND COBAND. PT HAS GAUZE AND CHESTER WRAP TO RIGHT RADIAL FROM CATH PROCEDURE 11/30, DRESSING REMOVED AND SITE IS CLEAN DRY INTACT. PT DENIES NEEDS AT THIS TIME. BED IN LOWEST POSITION, CALL LIGHT IN REACH.
[2022-11-30 11:10] VITALS: BP 93/57; PULSE 80; TEMP 97.9
[2022-11-30] MEDS ORDERED: NITROSTAT0.4 MG/TAB SL (12:18)
--- NOTE | 2022-11-30 12:25 | NUR ---
2 IVS AND TELE REMOVED, PT DRESSED IN PERSONAL CLOTHES. DISCHARG INSTRUCTIONS GIVEN, PT VERBALIZED UNDERSTANDING. PT DENIES NEEDS AT THIS TIME AND ESCORTED TO PERSONAL VEHICLE VIA WHEELCHAIR BY STAFF
--- NOTE | 2022-11-30 12:31 | NUR ---
Supervisor Alteration Workroom rounds: Patient was getting dressed to go home. He was very excited to be able to watch the football game at home.
== END 2022-11-30 12:56 | disposition home or self-care (01) ==
LOC: COL.ER 02:13 → MEDICAL 06:32
PROVIDERS: Emergency Medicine; Physician Assistant; ADMIT Internal Medicine
DX: R07.89 Other chest pain (principal); I25.10 Atherosclerotic heart disease of native coronary artery without angina pectoris; I10 Essential (primary) hypertension; N17.9 Acute kidney failure, unspecified; I21.4 Non-ST elevation (NSTEMI) myocardial infarction; R19.7 Diarrhea, unspecified; E78.5 Hyperlipidemia, unspecified; J44.9 Chronic obstructive pulmonary disease, unspecified; F17.210 Nicotine dependence, cigarettes, uncomplicated; Z95.5 Presence of coronary angioplasty implant and graft; Z79.899 Other long term (current) drug therapy
CPT/HCPCS: G0378; J1170; J1644; J2250; J2270; J3010; J3480; J7030; Q9967

== ENCOUNTER 2023-08-03 03:01 | Emergency (ER) | payer OTHER ==
[~2023-08-03] VITALS: Ht 172.7 cm; Wt 68.2 kg
[~2023-08-03 03:01] MED LIST changes: +MASON NATURAL2000 IU PO
[2023-08-03 03:02] VITALS: TEMP 97.5
[2023-08-03 04:13] LABS: BASO # 0.1 K/mm3 (0.0-0.2); BASO % 0.8 % (0.0-2.0); EOS # 0.5 K/mm3 (0.0-0.7); EOS % 6.1 % (0.0-4.0); GRAN # 4.4 K/mm3 (1.4-6.5); GRAN % 59.4 % (42.2-75.2); HEMOGLOBIN 10.6 g/dl (13.5-18.0); LYMPH % 26.4 % (20.0-51.0); MEAN CELL VOLUME 103 fl (80.0-100.0); MEAN CORPUSCULAR HEMOGLOBIN 34 pg (27-31); MEAN CORPUSCULAR HGB CONC 33 g/dl (33.0-37.0); MEAN PLATELET VOLUME 9.5 fl (7.4-10.4); MONO # 0.5 K/mm3 (0.1-0.6); MONO % 6.9 % (1.7-9.3); PLATELET COUNT 124 K/mm3 (130-400); RED BLOOD COUNT 3.14 M/mm3 (4.20-5.60); REDCELL DISTRIBUTION WIDTH-CV 13.7 % (11.5-14.5)
[2023-08-03] MEDS ORDERED: NS 500 ML IV ONE (04:15)
[2023-08-03 04:19] LABS: HEMATOCRIT 32.3 % (42.0-52.0)
[2023-08-03 04:26] LABS: INR 0.9 (0.8-3.0)
[2023-08-03 04:28] LABS: PARTIAL THROMBOPLASTIN TIME 30.2 SECONDS (26.0-37.0)
[2023-08-03] MEDS ORDERED: Albuterol/Ipratropium 3 MG-0.5 MG/3 ML Neb Soln IH ONE (04:30)
[2023-08-03 04:35] LABS: TROPONIN-I < 0.010 ng/mL (0.00-0.033)
[2023-08-03 04:36] LABS: ALANINE AMINOTRANSFERASE 8 U/L (0-55); ALBUMIN 3.2 g/dL (3.4-4.8); ALCOHOL(ethanol),MEDICAL 285 mg/dL (0-10); ALKALINE PHOSPHATASE 51 U/L (40-150); ANION GAP 12 mmol/L (7-16); AST,SGOT 11 U/L (5-34); BILIRUBIN,TOTAL 0.2 mg/dL (0.2-1.2); BLOOD UREA NITROGEN 30 mg/dL (8-26); CALCIUM 10.1 mg/dL (8.4-10.2); CHLORIDE 109 mEq/L (98-107); CREATININE, serum 2.18 mg/dL (0.72-1.25); GLUCOSE 101 mg/dL (70-99); POTASSIUM 3.5 mEq/L (3.5-4.5); SODIUM 142 mEq/L (136-145); TOTAL PROTEIN 6.5 g/dl (6.2-8.1)
[2023-08-03 08:33] VITALS: BP 108/71; PULSE 85
== END 2023-08-03 08:38 | disposition short-term general hospital (02) ==
LOC: COL.ER 03:01
PROVIDERS: Emergency Medicine
DX: S51.812A Laceration without foreign body of left forearm, initial encounter (principal); S51.811A Laceration without foreign body of right forearm, initial encounter; I95.9 Hypotension, unspecified; N17.9 Acute kidney failure, unspecified; F10.129 Alcohol abuse with intoxication, unspecified; Z23 Encounter for immunization; Y90.8 Blood alcohol level of 240 mg/100 ml or more; W18.30XA Fall on same level, unspecified, initial encounter
CPT/HCPCS: J7040